=== PATIENT | female | born 1995 | race Hispanic/Latino ===

== ENCOUNTER 2017-01-30 18:49 | Emergency (ER) | payer OTHER ==
[2017-01-30 19:52] VITALS: TEMP 98.2
[2017-01-30] MEDS ORDERED: Oxycodone/Acetaminophen 5/325 mg Tab PO STA (20:10)
[2017-01-30] MEDS ORDERED: Bacitracin 500 Units/gm Oint Foilpak UD TOP ONE (20:10)
[2017-01-30] MEDS ORDERED: Lidocaine 1% w Epi 1:100,000 Inj INJ ONE (20:10)
[2017-01-30] MEDS ORDERED: Bacitracin 500 Units/gm Oint Foilpak UD ONE (20:15)
[2017-01-30] MEDS ORDERED: Oxycodone/Acetaminophen 5/325 mg Tab ONE (20:16)
[2017-01-30] MEDS ORDERED: Lidocaine 2% w Epi 1:100,000 Inj IJ ONE (20:19)
--- NOTE | 2017-01-30 20:59 | C.PDOC ---
History Of Present Illness 21 yo female c/o laceration to her right foot s/p shower door falling onto it just prior to arrival. No other injury. No change in sensation. Time Seen by Provider: 01/30/17 19:46 Chief Complaint (Nursing): Abnormal Skin Integrity History Per: Patient History/Exam Limitations: no limitations Onset/Duration Of Symptoms: Mins Quality Of Symptoms: Painful Past Medical History Vital Signs: Last Vital Signs Temp 98.2 F 01/30/17 19:46 Pulse 75 01/30/17 21:12 Resp 18 01/30/17 21:12 BP 120/75 01/30/17 21:12 Pulse Ox 98 01/30/17 21:12 - Medical History PMH: Anxiety, Depression Denies: Chronic Kidney Disease Family History: States: Unknown Family Hx - Social History Hx Alcohol Use: No Hx Substance Use: No - Immunization History Hx Tetanus Toxoid Vaccination: Yes Hx Influenza Vaccination: No Hx Pneumococcal Vaccination: No Review Of Systems Except As Marked, All Systems Reviewed And Found Negative. Skin: Positive for: Other (laceration) Physical Exam - Physical Exam Appears: Well, Non-toxic, No Acute Distress Skin: Warm, Dry, Other ((+) 2 cm irregular laceartion over the MTP of the 2nd and 3rd) Head: Atraumatic, Normacephalic Eye(s): bilateral: Normal Inspection, EOMI Nose: Normal Oral Mucosa: Moist Neck: Normal Chest: Symmetrical Respiratory: No Accessory Muscle Use Back: Normal Inspection Extremity: Normal ROM, Tenderness, Capillary Refill (< 2 sec), No Swelling Pulses: Left Dorsalis Pedis: Normal, Right Dorsalis Pedis: Normal Neurological/Psych: Oriented x3, Normal Speech, Normal Motor (5/5 against resistance), Normal Sensation ED Course And Treatment O2 Sat by Pulse Oximetry: 99 - Other Rad Foot Xr X-Ray: Interpreted by Me, Viewed By Me Interpretation: No fx or dislocation Laceration - Laceration Repair foot Wound Length (In cm): 2 Description Of Wound: Irregular (Z shaped) Wound Cleansed With: Betadine, Sterile Saline Anesthesia: Lidocaine 1%, With Epi Wound Examination: Irrigated With Saline, No FB With Wound Exploration, No Tendon Injury With Wound Exploration Wound Closure: Suture (5-0; 3) Suture Technique And Material Used: Interrupted Wound Complexity: Simple Disposition - Disposition Disposition: HOME/ ROUTINE Disposition Time: 20:58 Condition: STABLE Additional Instructions: Wound check in 2 days. Suture removal in 7-10 days. Watch for signs of infection including redness, swelling and discharge. Prescriptions: Ibuprofen [Motrin] 600 mg PO Q6 PRN #20 tab PRN Reason: Pain, Mild (1-3) Instructions: Laceration (ED) Forms: Work Excuse - Clinical Impression Clinical Impression: Foot laceration
[2017-01-30] MEDS ORDERED: Tetanus/Diphtheria Toxoids 0.5 ml Syringe IM ONE ×2 (21:02→21:10)
[2017-01-30 21:13] VITALS: BP 120/75; PULSE 75; RESP 18
[2017-01-30 22:02] VITALS: O2SAT 99
--- NOTE | 2017-01-31 08:28 | RAD ---
PROCEDURE: Right Foot Radiographs. HISTORY: trauma COMPARISON: None. FINDINGS: BONES: Normal. No fracture. JOINTS: Normal. SOFT TISSUES: Normal. OTHER FINDINGS: None. IMPRESSION: Normal right foot radiographs.
== END 2017-01-30 21:15 | disposition home or self-care (01) ==
LOC: C.ER 18:49
DX: S91.311A Laceration without foreign body, right foot, initial encounter (principal); W20.8XXA Other cause of strike by thrown, projected or falling object, initial encounter; Z23 Encounter for immunization